=== PATIENT | male | born 1975 ===

== ENCOUNTER → 2022-12-19 15:21 | Outpatient (CLI) | payer OTHER, SELFPAY ==
--- NOTE | ~2022-12-19 | CT_ITS ---
EXAMINATION: CT brain wo con DATE: 12/19/2022 15:43 INDICATION: Headache TECHNIQUE: Computed tomography (CT) of the head was performed without intravenous contrast. The dose- length product was 599.57 mGy-cm. Automated exposure control and iterative reconstruction technique w ere employed. COMPARISON: None FINDINGS: No acute intracranial hemorrhage, infarction, mass or mass effect. Paranasal sinuses and ma stoids are pneumatized. No depressed skull fractures. No ventriculomegaly or midline shift. Normal gr ay-white differentiation. Midline sagittal images are normal. IMPRESSION: 1. No acute intracranial abnormality. Reviewed, dictated and finalized at location []
== END ==
DX: R51.9 Headache, unspecified (principal)
CPT/HCPCS: 70450